=== PATIENT | female | born 1955 | race Caucasian/White ===

== ENCOUNTER 2017-06-14 14:06 | Inpatient (IN) | payer MEDICAID ==
[~2017-06-14] VITALS: Ht 157.4 cm; Wt 92.7 kg
--- NOTE | ~2017-06-14 | CON ---
[place], [place] REPORT OF CONSULTATION NAME: MISHA CARLSON UNIT #: [id number] ROOM: 424 DOCTOR: SPENCER PRATT MD BIRTHDATE: [birth year] DOS: 06/15/2017 CHIEF COMPLAINT: "I am feeling better now." HISTORY OF PRESENT ILLNESS: This is a 61-year-old white female with a lengthy history of major depression, recurrent and dysthymic disorder. The patient reports that she has been following with a psychiatrist out of the [place] area as well as a counselor in that same office. She reports having been stabilized with a combination of trazodone, Xanax, and Geodon. The Geodon has been most recently added within the last month. With this combination of medication, she reports good sleep and appetite and improvement in her overall mood stability. However, on the day of admission, she got into an argument with her daughter, which has been an ongoing long-term stressor. In the course of the argument with the daughter, the daughter did state that she hated her and no longer wanted to have anything to do with her. This triggered her to feel increasingly depressed and have some fleeting suicidal thoughts. The patient did present to the Emergency Room complaining of worsening depression and shortness of breath and was admitted to the medical floor for an exacerbation of her COPD. Since being on the medical floor, the patient has felt better and states that the medicines do work and that this is more of a situational factor that she is hopeful can be resolved by ongoing counseling in the future. She convincingly denies suicidal thoughts, homicidal thoughts or any self-injurious thoughts. MENTAL STATUS: The patient is alert and oriented. Mood does seem to be euthymic. Affect is appropriate. There is no alicia, hypomania or psychosis noted. Memory for the most part is fully intact. DIAGNOSES: Major depression, recurrent and dysthymic disorder. PLAN: At this point in time, her current medication regimen seems reasonable. She is tolerating it well without side effects and she voices that it has helped her greatly. She does have a followup appointment in the office of her psychiatrist in [place] and plans to follow with a counselor in that same office as well. There is no need for further hospitalization at this time. SPENCER PRATT MD CM:CONSTR:REPORT OF CONSULTATION 8 06/15/17930 interface
--- NOTE | ~2017-06-14 | CON ---
[place], [place] REPORT OF CONSULTATION NAME: MISHA CARLSON UNIT #: [id number] ROOM: 424 DOCTOR: JS STANTON ED.D (ASHLEY) BIRTHDATE: [birth year] DOS: 06/17/2017 HISTORY OF PRESENT ILLNESS: The patient is a 61-year-old female referred by Dr. Wilhelm for evaluation of her depression. At the present time, she is on the 4th floor at [facility]. This patient states she is , has 2 children. She is presently on SSI. MEDICAL HISTORY: Pertinent for COPD, bipolar 2 and migraine headaches. MEDICATIONS: Include Ventolin, Xanax, Neurontin, Percocet, olanzapine, omeprazole, VESIcare, trazodone, Effexor. She denies any significant substance abuse issues. PHYSICAL EXAMINATION: The patient was awake, alert and oriented in all three spheres. She adamantly denies any suicidal ideation or plan, stating she was just frustrated with her daughter, but has no plans on killing herself. She does have a psychiatrist in [place] and also sees a counselor in [place]. She is going to follow up with him when she is discharged from the hospital and states she is not suicidal or not harm herself. In addition to a counselor and a psychiatrist, she has a trimming caser. RECOMMENDATIONS: 1. In my opinion, this patient would benefit from outpatient counseling. 2. The patient should continue her psychotropic medications as prescribed. DIAGNOSIS: Bipolar 2 disorder. Thank you very much for this consult. JS STANTON ED.D CM:CONSTR:REPORT OF CONSULTATION 1010 06/17/17 1115 interface
--- NOTE | ~2017-06-14 | EKG ---
[place], [place] ELECTROCARDIOGRAM REPORT NAME: MISHA CARLSON UNIT #: [id number] ROOM: 424 DOCTOR: RENY KINCAID,EMORY BIRTHDATE: [birth year] DOS: 06/14/2017 TIME: 1514 IMPRESSION: 1. Sinus rhythm. 2. Borderline low voltage complexes. 3. Baseline artifacts. 4. Normal QT interval. EMORY OGLESBY MD CM:EKGRPT:ELECTROCARDIOGRAM REPORT 0842 [id number] EMORY OGLESBY MD
[2017-06-14 14:13] VITALS: BP 107/70
[2017-06-14 15:14] LABS: BILIRUBIN NEGATIVE (NEGATIVE); BLOOD NEGATIVE (NEGATIVE); CLARITY CLEAR (CLEAR); COLOR YELLOW (YELLOW); GLUCOSE NEGATIVE (NEGATIVE); KETONE NEGATIVE (NEGATIVE); LEUKO ESTERASE 1+ (NEGATIVE); NITRITE NEGATIVE (NEGATIVE); SPECIFIC GRAVITY <= 1.005 (1.005-1.030); UROBILINOGEN 0.2 E.U./dl (0.2-1.0)
[2017-06-14 15:25] LABS: BASO % 0.2 % (0.0-1.0); HEMATOCRIT 40.8 % (37.0-47.0); HEMOGLOBIN 13.1 g/dl (12.0-16.0); LYMPH # 2.6 10*3/uL (1.3-4.4); LYMPH % 49.6 % (27.0-41.0); MEAN CELL VOLUME 95.1 fl (81.0-99.0); MEAN CORPUSCULAR HGB 30.5 pg (27.0-31.0); MEAN CORPUSCULAR HGB CONC 32.1 g/dl (33.0-37.0); MEAN PLATELET VOLUME 9.7 fl (9.6-12.3); MONO # 0.3 10*3/uL (0.1-1.0); MONO % 6.5 % (3.0-9.0); NEUT # 2.3 10*3/uL (2.3-7.9); NEUT % 43.5 % (47.0-73.0); PLATELET COUNT AUTOMATED 212 10*3/uL (130-400); RED BLOOD COUNT 4.29 10*6/uL (4.10-5.10); RED CELL DISTRI WIDTH 13.9 % (0-14.5); WHITE BLOOD COUNT 5.2 10*3/uL (4.8-10.8)
[2017-06-14 15:26] LABS: BACTERIA TRACE; EPITHELIAL CELLS 20-25; RBC 0-2 rbc/hpf (0-2)
[2017-06-14 15:34] LABS: ACT PARTIAL THROMBO TIME 27.5 SECONDS (20.8-31.5); INTERNATIONAL NORM RATIO 0.9 (2.0-3.5)
[2017-06-14 15:41] LABS: ALBUMIN 3.9 gm/dl (3.1-4.5); ALKALINE PHOSPHATASE 70 U/L (45-117); BUN 13 mg/dl (7-24); CHLORIDE 102 mmol/L (98-107); CREATININE 1.08 mg/dL (0.55-1.02); LIPASE 54 U/L (73-393); POTASSIUM 3.9 mmol/L (3.5-5.1); SGOT/AST 21 IU/L (3-35); SGPT/ALT 27 U/L (12-78); SODIUM 139 mmol/L (136-145); TOTAL PROTEIN 7.9 gm/dL (6.4-8.2)
[2017-06-14 15:50] LABS: ETHYL ALCOHOL < 3.0 mg/dl (<3); TROPONIN I < 0.015 ng/ml (<0.045)
[2017-06-14 16:52] VITALS: BP 120/57
[2017-06-14 17:00] VITALS: BP 125/85
[2017-06-14] MEDS ORDERED: ALPRAZOLAM2 MG PO (17:43)
[2017-06-14] MEDS ORDERED: TRAZADONE HYDR100 MG PO (17:44)
[2017-06-14] MEDS ORDERED: NEURONTIN300 MG PO (17:45)
[2017-06-14] MEDS ORDERED: ZIPRASIDONE HCL80 M1 PO (17:45)
[2017-06-14] MEDS ORDERED: HYDROCODONE-AC1 EAC2 PO (17:45)
[2017-06-14] MEDS ORDERED: MONTELUKAST SOD10 MG PO (17:46)
[2017-06-14] MEDS ORDERED: ONDANSETRON HYDR4 MG PO (17:46)
[2017-06-14] MEDS ORDERED: OMEPRAZOLE D/R20 MG PO (17:46)
[2017-06-14] MEDS ORDERED: VENTOLIN 02.5 MG/3 M INH (17:48)
[2017-06-14 20:06] VITALS: BP 106/85
[2017-06-15 00:14] VITALS: BP 96/57
[2017-06-15 07:07] LABS: HEMATOCRIT 38.7 % (37.0-47.0); HEMOGLOBIN 12.6 g/dl (12.0-16.0); LYMPH # 0.6 10*3/uL (1.3-4.4); LYMPH % 11.3 % (27.0-41.0); MEAN CELL VOLUME 94.2 fl (81.0-99.0); MEAN CORPUSCULAR HGB 30.7 pg (27.0-31.0); MEAN CORPUSCULAR HGB CONC 32.6 g/dl (33.0-37.0); MEAN PLATELET VOLUME 9.8 fl (9.6-12.3); MONO % 0.6 % (3.0-9.0); NEUT # 4.5 10*3/uL (2.3-7.9); NEUT % 87.7 % (47.0-73.0); PLATELET COUNT AUTOMATED 230 10*3/uL (130-400); RED BLOOD COUNT 4.11 10*6/uL (4.10-5.10); RED CELL DISTRI WIDTH 13.9 % (0-14.5); WHITE BLOOD COUNT 5.2 10*3/uL (4.8-10.8)
[2017-06-15 07:23] LABS: ALBUMIN 3.4 gm/dl (3.1-4.5); CREATININE 1.21 mg/dL (0.55-1.02); FREE T4 0.77 ng/dl (0.76-1.46); PHOSPHOROUS 3.1 mg/dL (2.5-4.9); POTASSIUM 4.1 mmol/L (3.5-5.1); TOTAL PROTEIN 7.4 gm/dL (6.4-8.2)
[2017-06-15 07:28] LABS: THYROID STIM HORMONE (HS) 0.204 uIU/ml (0.358-4.75)
[2017-06-15 07:36] LABS: ACT PARTIAL THROMBO TIME 25.9 SECONDS (20.8-31.5); INTERNATIONAL NORM RATIO 0.9 (2.0-3.5)
[2017-06-15 08:00] VITALS: BP 98/55
[2017-06-15 08:38] LABS: VITAMIN D, 25-HYDROXY 18.2 ng/mL (30-100)
[2017-06-15 12:00] VITALS: BP 107/63
[2017-06-15 16:00] VITALS: BP 110/70
[2017-06-15 20:00] VITALS: BP 99/62
[2017-06-16] VITALS: BP 103/72
[2017-06-16] MEDS ORDERED: OLANZAPINE10 MG PO (01:08)
[2017-06-16] MEDS ORDERED: VENLAFAXINE H37.5 M5 PO (01:09)
[2017-06-16] MEDS ORDERED: VESICARE5 MG PO (01:10)
[2017-06-16 05:55] LABS: BUN 16 mg/dl (7-24); CHLORIDE 102 mmol/L (98-107); CREATININE 1.02 mg/dL (0.55-1.02); SODIUM 140 mmol/L (136-145)
[2017-06-16 05:58] LABS: HEMATOCRIT 36.5 % (37.0-47.0); HEMOGLOBIN 11.6 g/dl (12.0-16.0); MEAN CELL VOLUME 96.6 fl (81.0-99.0); MEAN CORPUSCULAR HGB 30.7 pg (27.0-31.0); MEAN CORPUSCULAR HGB CONC 31.8 g/dl (33.0-37.0); MEAN PLATELET VOLUME 10.2 fl (9.6-12.3); PLATELET COUNT AUTOMATED 240 10*3/uL (130-400); RED BLOOD COUNT 3.78 10*6/uL (4.10-5.10); RED CELL DISTRI WIDTH 14.3 % (0-14.5); WHITE BLOOD COUNT 17.3 10*3/uL (4.8-10.8)
[2017-06-16 06:35] LABS: TOTAL CELLS COUNTED 100 #CELLS
[2017-06-16 06:36] LABS: PLATELET SUFFICIENCY NORMAL (NORMAL)
[2017-06-16 08:00] VITALS: BP 97/72
[2017-06-16 12:00] VITALS: BP 113/70
[2017-06-16 16:00] VITALS: BP 101/52
[2017-06-16 20:00] VITALS: BP 92/57
[2017-06-17] VITALS: BP 112/74
[2017-06-17 05:40] LABS: BUN 19 mg/dl (7-24); CHLORIDE 105 mmol/L (98-107); CREATININE 0.84 mg/dL (0.55-1.02); POTASSIUM 4.2 mmol/L (3.5-5.1); SODIUM 140 mmol/L (136-145)
[2017-06-17 05:56] LABS: BASO % 0.1 % (0.0-1.0); HEMATOCRIT 34.2 % (37.0-47.0); HEMOGLOBIN 10.8 g/dl (12.0-16.0); LYMPH # 1.5 10*3/uL (1.3-4.4); MEAN CELL VOLUME 97.4 fl (81.0-99.0); MEAN CORPUSCULAR HGB 30.8 pg (27.0-31.0); MEAN CORPUSCULAR HGB CONC 31.6 g/dl (33.0-37.0); MEAN PLATELET VOLUME 10.3 fl (9.6-12.3); MONO # 0.7 10*3/uL (0.1-1.0); MONO % 4.3 % (3.0-9.0); NEUT # 14.5 10*3/uL (2.3-7.9); NEUT % 85.9 % (47.0-73.0); PLATELET COUNT AUTOMATED 220 10*3/uL (130-400); RED BLOOD COUNT 3.51 10*6/uL (4.10-5.10); RED CELL DISTRI WIDTH 14.8 % (0-14.5); WHITE BLOOD COUNT 16.8 10*3/uL (4.8-10.8)
[2017-06-17 08:00] VITALS: BP 128/96
[2017-06-17] MEDS ORDERED: SIMVASTATIN20 MG PO (13:47)
[2017-06-17] MEDS ORDERED: VITAMIN D-32000 UNIT PO (13:48)
[2017-06-17] MEDS ORDERED: PREDNISONE10 MG PO (13:48)
== END 2017-06-17 15:28 | disposition home or self-care (01) | DRG 682 ==
LOC: ED 14:06 → EDHOLD 16:04 → 4E 16:04
PROVIDERS: Emergency Medicine; Internal Medicine
DX: N17.0 Acute kidney failure with tubular necrosis (principal); J96.01 Acute respiratory failure with hypoxia; J44.1 Chronic obstructive pulmonary disease with (acute) exacerbation; F33.9 Major depressive disorder, recurrent, unspecified; F31.81 Bipolar II disorder; D72.810 Lymphocytopenia; E83.41 Hypermagnesemia; F41.9 Anxiety disorder, unspecified; M79.7 Fibromyalgia; G43.709 Chronic migraine without aura, not intractable, without status migrainosus; G62.9 Polyneuropathy, unspecified; M51.36 Other intervertebral disc degeneration, lumbar region; D17.9 Benign lipomatous neoplasm, unspecified; F34.1 Dysthymic disorder; E78.5 Hyperlipidemia, unspecified; E55.9 Vitamin D deficiency, unspecified; Z88.6 Allergy status to analgesic agent; Z88.8 Allergy status to other drugs, medicaments and biological substances; Z90.49 Acquired absence of other specified parts of digestive tract; Z98.51 Tubal ligation status; Z82.49 Family history of ischemic heart disease and other diseases of the circulatory system; Z83.6 Family history of other diseases of the respiratory system; Z79.899 Other long term (current) drug therapy

== ENCOUNTER 2017-07-16 09:28 | Inpatient (IN) | payer MEDICAID ==
[~2017-07-16] VITALS: Ht 157.5 cm; Wt 97.2 kg
--- NOTE | ~2017-07-16 | CON ---
[place], [place] REPORT OF CONSULTATION NAME: MISHA CARLSON UNIT #: [id number] ROOM: [place] [address] DOCTOR: SPENCER PRATT MD BIRTHDATE: [birth year] DOS: 07/17/2017 CHIEF COMPLAINT: "I fall a lot." HISTORY OF PRESENT ILLNESS: This is a 61-year-old female admitted to ICU with a history of bipolar type 1, generalized anxiety disorder and major depression. She was brought into [facility] emergency room by EMS due to multiple falls. She fell four times on the day of admission trying to ambulate from her bed to her bathroom. She was found by the [facility] staff and was brought to the ER to be evaluated. The patient states she has not eaten anything in several weeks. She reports increased depression over the fact that her brother recently and she has had significant family discord with her daughter. She, however, denies current depressive symptoms, stating that she sees psychiatrist in [place] and has seen him for the last 7-8 months. She feels that for the most part, her symptoms are under control. She does, however, endorse neuropathic pain as well as overusing her opioid medications. She does have a past history of fibromyalgia as well. MENTAL STATUS: She is alert and oriented. Mood does seem to be fairly euthymic. Affect seems appropriate. There is no alicia, hypomania or psychosis. Memory for the most part is intact. DIAGNOSIS: Bipolar type 2. PLAN: I have discontinued her Effexor and her trazodone. The high dose of trazodone could potentially be causing some urinary retention. I will write her for Cymbalta 30 mg at bedtime. This will multitask help the depression, help her anxiety, so she does not have to use the Xanax as frequently and also help the pain, so hopefully she does not have to use the opioid analgesia as much. She is not a criteria for inpatient stay and may be discharged when you feel that she is ready. SPENCER PRATT MD CM:CONSTR:REPORT OF CONSULTATION 1149 07/17/17 1223 interface
[2017-07-16 09:28] VITALS: BP 118/85
[~2017-07-16 09:28] MED LIST: ALPRAZOLAM2 MG PO; HYDROCODONE-AC1 EAC2 PO; MONTELUKAST SOD10 MG PO; NEURONTIN300 MG PO; OLANZAPINE10 MG PO; OMEPRAZOLE D/R20 MG PO; ONDANSETRON HYDR4 MG PO; PREDNISONE10 MG PO; PROVENTIL HFA6.7 GM INH; SIMVASTATIN20 MG PO; TRAZADONE HYDR100 MG PO; VENLAFAXINE H37.5 M5 PO; VESICARE5 MG PO; VITAMIN D-32000 UNIT PO; ZIPRASIDONE HCL80 M1 PO
[2017-07-16 10:04] LABS: BASO % 0.4 % (0.0-1.0); EOS % 0.2 % (1.0-4.0); HEMATOCRIT 39.1 % (37.0-47.0); HEMOGLOBIN 12.6 g/dl (12.0-16.0); LYMPH # 1.9 10*3/uL (1.3-4.4); LYMPH % 35.2 % (27.0-41.0); MEAN CELL VOLUME 96.3 fl (81.0-99.0); MEAN CORPUSCULAR HGB CONC 32.2 g/dl (33.0-37.0); MONO # 0.4 10*3/uL (0.1-1.0); MONO % 7.4 % (3.0-9.0); NEUT # 3.1 10*3/uL (2.3-7.9); NEUT % 56.6 % (47.0-73.0); PLATELET COUNT AUTOMATED 224 10*3/uL (130-400); RED BLOOD COUNT 4.06 10*6/uL (4.10-5.10); RED CELL DISTRI WIDTH 14.1 % (0-14.5); WHITE BLOOD COUNT 5.4 10*3/uL (4.8-10.8)
[2017-07-16 10:13] LABS: ACT PARTIAL THROMBO TIME 27.1 SECONDS (20.8-31.5)
[2017-07-16 10:22] LABS: ALBUMIN 3.7 gm/dl (3.1-4.5); ALKALINE PHOSPHATASE 58 U/L (45-117); BUN 10 mg/dl (7-24); CHLORIDE 105 mmol/L (98-107); CREATININE 1.06 mg/dL (0.55-1.02); POTASSIUM 3.9 mmol/L (3.5-5.1); SGOT/AST 18 IU/L (3-35); SGPT/ALT 30 U/L (12-78); SODIUM 139 mmol/L (136-145); TOTAL PROTEIN 7.6 gm/dL (6.4-8.2)
[2017-07-16 10:30] VITALS: BP 131/74
[2017-07-16 10:30] LABS: TROPONIN I < 0.015 ng/ml (<0.045)
[2017-07-16 11:35] LABS: ACETAMINOPHEN (TYLENOL) < 2.0 ug/ml (10-30); ETHYL ALCOHOL < 3.0 mg/dl (<3)
[2017-07-16 11:54] LABS: BILIRUBIN NEGATIVE (NEGATIVE); BLOOD NEGATIVE (NEGATIVE); CLARITY CLEAR (CLEAR); COLOR YELLOW (YELLOW); GLUCOSE NEGATIVE (NEGATIVE); KETONE NEGATIVE (NEGATIVE); LEUKO ESTERASE NEGATIVE (NEGATIVE); NITRITE NEGATIVE (NEGATIVE); PH 5.5 (5.0-9.0); SPECIFIC GRAVITY <= 1.005 (1.005-1.030); UROBILINOGEN 0.2 E.U./dl (0.2-1.0)
[2017-07-16 12:00] LABS: BACTERIA TRACE; WBC 0-2 wbc/hpf (0-5)
[2017-07-16 12:01] VITALS: BP 131/84
[2017-07-16 12:03] LABS: URINE AMPHETAMINES < 1000 (1000ng/ml); URINE BARBITURATES < 200 (200ng/ml); URINE BENZODIAZEPINES > 200 (200ng/ml); URINE CANNABINOIDS (THC) < 50 (50ng/ml); URINE COCAINE < 300 (300ng/ml); URINE METHADONE < 300 (300ng/ml); URINE OPIATES > 300 (300ng/ml)
[2017-07-16 12:06] LABS: URINE PHENCYCLIDINE < 25 (25ng/ml)
[2017-07-16 12:10] VITALS: BP 143/87
[2017-07-16 16:00] VITALS: BP 141/91
[2017-07-16 20:00] VITALS: BP 117/85
[2017-07-17] VITALS: BP 124/88
[2017-07-17 04:00] VITALS: BP 95/53
[2017-07-17 05:44] LABS: ACT PARTIAL THROMBO TIME 26.7 SECONDS (20.8-31.5); INTERNATIONAL NORM RATIO 0.9 (2.0-3.5)
[2017-07-17 05:46] LABS: ALBUMIN 3.3 gm/dl (3.1-4.5); ALKALINE PHOSPHATASE 50 U/L (45-117); BUN 12 mg/dl (7-24); CHLORIDE 104 mmol/L (98-107); CREATININE 0.92 mg/dL (0.55-1.02); SGOT/AST 15 IU/L (3-35); SGPT/ALT 25 U/L (12-78); SODIUM 141 mmol/L (136-145); TOTAL PROTEIN 6.5 gm/dL (6.4-8.2)
[2017-07-17 05:47] LABS: BASO % 0.2 % (0.0-1.0); EOS % 0.4 % (1.0-4.0); HEMATOCRIT 36.7 % (37.0-47.0); HEMOGLOBIN 11.7 g/dl (12.0-16.0); LYMPH % 40.7 % (27.0-41.0); MEAN CELL VOLUME 96.6 fl (81.0-99.0); MEAN CORPUSCULAR HGB 30.8 pg (27.0-31.0); MEAN CORPUSCULAR HGB CONC 31.9 g/dl (33.0-37.0); MEAN PLATELET VOLUME 9.7 fl (9.6-12.3); MONO # 0.4 10*3/uL (0.1-1.0); MONO % 7.5 % (3.0-9.0); NEUT # 2.5 10*3/uL (2.3-7.9); PLATELET COUNT AUTOMATED 230 10*3/uL (130-400); RED CELL DISTRI WIDTH 14.1 % (0-14.5)
[2017-07-17 05:52] LABS: FREE T4 0.69 ng/dl (0.76-1.46)
[2017-07-17 08:00] VITALS: BP 109/71
[2017-07-17 12:00] VITALS: BP 113/77
[2017-07-17 16:00] VITALS: BP 111/73
[2017-07-17 20:00] VITALS: BP 109/52; BP 136/70
[2017-07-18] VITALS: BP 127/62
[2017-07-18 06:20] LABS: BASO % 0.1 % (0.0-1.0); HEMATOCRIT 36.8 % (37.0-47.0); HEMOGLOBIN 11.8 g/dl (12.0-16.0); LYMPH # 2.5 10*3/uL (1.3-4.4); LYMPH % 32.5 % (27.0-41.0); MEAN CELL VOLUME 96.8 fl (81.0-99.0); MEAN CORPUSCULAR HGB 31.1 pg (27.0-31.0); MEAN CORPUSCULAR HGB CONC 32.1 g/dl (33.0-37.0); MEAN PLATELET VOLUME 9.9 fl (9.6-12.3); MONO # 0.6 10*3/uL (0.1-1.0); MONO % 7.4 % (3.0-9.0); NEUT # 4.5 10*3/uL (2.3-7.9); NEUT % 59.9 % (47.0-73.0); PLATELET COUNT AUTOMATED 227 10*3/uL (130-400); RED CELL DISTRI WIDTH 14.4 % (0-14.5); WHITE BLOOD COUNT 7.5 10*3/uL (4.8-10.8)
[2017-07-18 06:34] LABS: BUN 18 mg/dl (7-24); CHLORIDE 104 mmol/L (98-107); CREATININE 0.93 mg/dL (0.55-1.02); POTASSIUM 4.1 mmol/L (3.5-5.1); SODIUM 138 mmol/L (136-145)
[2017-07-18 08:00] VITALS: BP 104/67
[2017-07-18 08:16] VITALS: BP 100/60
[2017-07-18 12:00] VITALS: BP 111/71
[2017-07-18 16:00] VITALS: BP 103/76
[2017-07-18] MEDS ORDERED: DULOXETINE HCL30 MG PO (16:05)
== END 2017-07-18 17:49 | disposition home or self-care (01) | DRG 917 ==
LOC: ED 09:28 → EDHOLD 11:38 → ICCU 11:38 → 4E 07-17 14:18
PROVIDERS: Family Medicine; Student in an Organized Health Care Education/Training Program
DX: T50.904A Poisoning by unspecified drugs, medicaments and biological substances, undetermined, initial encounter (principal); N17.0 Acute kidney failure with tubular necrosis; G93.41 Metabolic encephalopathy; F31.81 Bipolar II disorder; G62.9 Polyneuropathy, unspecified; S09.90XA Unspecified injury of head, initial encounter; R06.09 Other forms of dyspnea; W18.30XA Fall on same level, unspecified, initial encounter; S40.012A Contusion of left shoulder, initial encounter; M79.7 Fibromyalgia; N18.3 Chronic kidney disease, stage 3 (moderate); J44.9 Chronic obstructive pulmonary disease, unspecified; G89.29 Other chronic pain; E78.5 Hyperlipidemia, unspecified; G43.909 Migraine, unspecified, not intractable, without status migrainosus; F41.1 Generalized anxiety disorder; Z90.49 Acquired absence of other specified parts of digestive tract; Z98.51 Tubal ligation status; Z80.0 Family history of malignant neoplasm of digestive organs; Z82.49 Family history of ischemic heart disease and other diseases of the circulatory system; Z83.6 Family history of other diseases of the respiratory system; Z79.899 Other long term (current) drug therapy; Z79.52 Long term (current) use of systemic steroids; Y93.89 Activity, other specified; Y92.89 Other specified places as the place of occurrence of the external cause; Y99.8 Other external cause status

== ENCOUNTER 2018-03-02 14:00 | Inpatient (IN) | payer MEDICAID ==
[~2018-03-02] VITALS: Ht 157.4 cm; Wt 88.0 kg
--- NOTE | ~2018-03-02 | EKG ---
[place], [place] ELECTROCARDIOGRAM REPORT NAME: MISHA CARLSON UNIT #: [id number] ROOM: 315 DOCTOR: SALVADOR DRAFT REPORT BIRTHDATE: [birth year] [facility] Test Date: 2018-03-02 Test Time: 14:16:24 Pat Name: MISHA CARLSON Department: Room: [facility] Gender: F Orthopaedic Nurse: : 1955 Requested By: RUPERTO MCCURDY Order Number: [id number] Reading MD: Cliff Mayer MD Measurements Intervals [place] Rate: 76 P: GA: QRS: 75 QRSD: 87 T: 67 QT: 401 QTc: 451 Interpretive Statements Normal sinus rhythm Marked baseline artifact No previous ECG available for comparison Electronically Signed On 03-03-2018 16:40:06 PST by Cliff Mayer MD CM:EKGRPT:ELECTROCARDIOGRAM REPORT 1416 1640 RUPERTO FRANCO DRAFT REPORT RUPERTO MCCURDY MD
--- NOTE | ~2018-03-02 | DS ---
[place], [place] DISCHARGE SUMMARY [id number] UNIT #: [id number] ROOM: 315 DOCTOR: SPENCER PRATT MD BIRTHDATE: [birth year] DOS: 03/06/2018 CHIEF COMPLAINT: "I don't belong in the [employer] bin I remember you from generations in [place]." HISTORY OF PRESENT ILLNESS: This is a 62-year-old white female who was admitted to the [facility] from the Emergency Room at [facility] where she was pink slipped and sent here on an involuntary basis. The patient had presented there stating that she was hearing voices talking to her and stating that they were going to build a coffin for her, so that they could kill her. She was keeping a knife by her bedside in case something came to get her. At this point, she was so fearful that she did call EMS and they did come to her assistance and brought her directly to the Emergency Room for further evaluation. In the Emergency Room, the patient was found to be grossly psychotic, very paranoid and actively hallucinating, because of the severity of her symptoms, it was felt that an inpatient stabilization was warranted and the Emergency Room physicians did send her to the psychiatric unit on an involuntary basis. The patient most recently did receive a dose of Invega Sustenna 234 mg on 02/26/2018. SUMMARY OF HOSPITAL COURSE: The patient was admitted to the unit where she was initially started on Vraylar 1.5 mg at bedtime. At first, the patient was hesitant to take the medication, but after describing to her the risks, benefits of the medication the patient did agree to take the Vraylar without any further difficulty. She tolerated the Vraylar well and the dose was increased from 1.5-3 mg a day without further incident. The patient did sleep well with the Vraylar. She did not have any sedation, somnolence, extrapyramidal symptoms or tardive dyskinesia, rather rapidly her symptoms came under control and she was voicing positive plans for the future. She was no longer reporting that she was having thoughts that someone was trying to kill her, nor did she feel that anyone was building her coffin. The patient did exhibit some cognitive decline and had some gaps in her short term memory; however, she was able to attend to her ADLs appropriately and know the medication regimen that she was prescribed. She exhibited no issues from the medications themselves, voiced positive plans for the future and was discharged then back home on March 06. MENTAL STATUS AT DISCHARGE: The patient was alert and oriented to person, place and time. There were some mild gaps regarding timeframe. Mood was strongly trending towards euthymia. Affect was much more appropriate. There was no alicia, hypomania, nor was there any gross psychotic symptoms. For the most part, memory was intact. There was some minor short term memory gaps. DIAGNOSIS UPON DISCHARGE: Schizoaffective disorder. DISPOSITION: All of her medications have been e-scribed to [facility] except her Xanax prescription which was lowered and she was given a 7-day supply of the Xanax. At the time of discharge, the patient was medically stable. There were no acute issues present. She was psychiatrically stable and ready for discharge. [place], [place] DISCHARGE SUMMARY [id number] UNIT #: [id number] ROOM: [facility] DOCTOR: SPENCER PRATT MD BIRTHDATE: [birth year] SPENCER PRATT MD CM:DISCHDENNIS 7 0 SPENCER PRATT MD 03/06/18939 interface
--- NOTE | ~2018-03-02 | WRIGHTHP ---
[place], [place] PATIENT HISTORY AND PHYSICAL EXAM NAME: [facility]LSON [id number] UNIT #: [id number] ROOM: 315 DOCTOR: SPENCER PRATT MD BIRTHDATE: [birth year] DOS: 03/03/2018 INITIAL PSYCHIATRIC EVALUATION CHIEF COMPLAINT: "I don't belong in the [employer] bin, I remember you from generations" HISTORY OF PRESENT ILLNESS: This is a 62-year-old white female who was admitted to the [facility] from the Emergency Room where she was pink slipped. The patient had presented there stating that she has been hearing voices talking to her saying that they are going to build a coffin for her. She has been keeping a knife by her bed in case someone came into her place and try to get her. At this point, she did call EMS stating that she was fearful that something bad was going to happen. They did bring her into the Emergency Room for further evaluation where she was found to be very paranoid and actively hallucinating while in the Emergency Room at [facility]. She was sent here on an involuntary basis because it was felt that she could be a potential danger to herself and others. The patient most recently was hospitalized in December of this year at [facility] for similar issues. Most recently, she has been stabilized on Invega, but reports significant tremors from the Invega Sustenna. PAST MEDICAL HISTORY: Remarkable for asthma, bipolar disorder versus schizoaffective disorder, chronic migraine headaches, COPD, degenerative disk disease, fibromyalgia, hyperlipidemia, neuropathy, ulcerative colitis, and vitamin D deficiency. SOCIAL HISTORY: She does not smoke cigarettes, use drugs or alcohol. ALLERGIES: She does lose multiple drug allergies to CODEINE, FLEXERIL and IBUPROFEN. STRENGTHS: Ambulatory, good verbal skills. WEAKNESSES: Chronic psychiatric issues and poor coping skills. MENTAL STATUS: She is alert and oriented to person, place and time. Mood does seem to be somewhat depressed with anxious overtones and significant paranoia and delusions; however, she is pleasant and cooperative and was very bright and engaging with me. She tended to minimize her symptomatology trying to read it off is nothing. She however convincingly denies suicidal thoughts, homicidal thoughts or any self-injurious thoughts. Memory for the most part is intact. DIAGNOSIS: Schizoaffective disorder. PLAN: I will go ahead and add Vraylar 1.5 mg at bedtime to augment her current psychotropic regimen hoping that this will decrease some of her delusions and stabilize her mood. We will engage her in individual and sandoval milieu activity, returning to the least restrictive environment when psychiatrically stable. [place], [place] PATIENT HISTORY AND PHYSICAL EXAM NAME: MISHA CARLSON UNIT #: [id number] ROOM: [facility] DOCTOR: SPENCER PRATT MD BIRTHDATE: [birth year] SPENCER PRATT MD CM:HISPHYS:PATIENT HISTORY AND PHYSICAL EXAMINATION 9 7 SPENCER PRATT MD 03/03/18 1139 interface
--- NOTE | ~2018-03-02 | PR ---
[place], [place] PROGRESS NOTE NAME: MISHA CARLSON UNIT #: [id number] ROOM: 315 DOCTOR: SPENCER PRATT MD BIRTHDATE: [birth year] DOS: 03/04/2018 INTERVAL NOTE CHIEF COMPLAINT: "Oh, I need to know more about this Vraylar, what we will do." SUMMARY OF THE VISIT: The patient was interviewed as she was walking in the hallway with the Physical Therapy Department. She stopped and engaged readily in conversation. I discussed with her the pros and cons of Vraylar. She did mention to me that her family does suffer from both hyperlipidemia and diabetes and was concerned what her levels are currently. Otherwise, she does seem to be trending generally towards improvement. MENTAL STATUS: She is alert and oriented. Mood does seem to be more euthymic. Affect more appropriate. There is no alicia, hypomania or gross psychosis. Short-term memory, long-term memory and intermediate are intact. PLAN: Vitamin B12 level is low normal at 336. I will treat with vitamin B12 injection 1000 mcg IM monthly. I did instruct the medical student that is working with us this month to discuss with the patient the fact that her lipids are mildly elevated as is her hemoglobin A1c. We will discuss this later with the hospitalist to see if any diabetic teaching or dietary issues could improve this. We will engage her in individual and sandoval milieu activity, returning home when stable. SPENCER PRATT MD CM:PNTRANS 3 1639 SPENCER PRATT MD 03/04/18 1637 interface
--- NOTE | ~2018-03-02 | PR ---
[place], [place] PROGRESS NOTE NAME: MISHA CARLSON UNIT #: [id number] ROOM: 315 DOCTOR: SPENCER WILHELM MD BIRTHDATE: [birth year] DOS: 03/05/2018 INTERVAL NOTE CHIEF COMPLAINT: "Oh, I'm feeling better, Dr. Wilhelm, although I had this pain behind my knee." SUMMARY OF THE VISIT: The patient was interviewed as she was resting quietly in bed. She did report she slept well. She did get up, walked down for breakfast and eat a full breakfast. She reports that she had pain in the middle of the night, but that the pain did not seem to be present now. She voiced no other complaints and seems fairly euthymic in her presentation. She convincingly denied medication side effects. MENTAL STATUS: She is alert and oriented to person, place and time. Mood does seem to be trending solidly towards euthymia. Affect is more appropriate. There is no alicia, hypomania or gross psychotic symptoms. Short, intermediate, and long-term memory are roughly intact. PLAN: I will increase her Vraylar from 1.5 to 3 mg at bedtime bringing it into a therapeutic range. We will support and monitor, engage in individual and sandoval milieu activity, returning to the least restrictive environment when psychiatrically stable. SPENCER WILHELM MD CM:PNTRANS 0958 SPENCER WILHELM MD 03/06/18 0745 interface
[~2018-03-02 14:00] MED LIST changes: +DULOXETINE HCL30 MG PO
[2018-03-02 14:11] VITALS: BP 105/66
[2018-03-02 14:25] LABS: BASO % 0.3 % (0.0-1.0); HEMATOCRIT 38.3 % (37.0-47.0); HEMOGLOBIN 12.9 g/dl (12.0-16.0); LYMPH # 1.9 10*3/uL (1.3-4.4); LYMPH % 29.1 % (27.0-41.0); MEAN CELL VOLUME 91.6 fl (81.0-99.0); MEAN CORPUSCULAR HGB 30.9 pg (27.0-31.0); MEAN CORPUSCULAR HGB CONC 33.7 g/dl (33.0-37.0); MONO # 0.5 10*3/uL (0.1-1.0); MONO % 8.4 % (3.0-9.0); PLATELET COUNT AUTOMATED 222 10*3/uL (130-400); RED BLOOD COUNT 4.18 10*6/uL (4.10-5.10); RED CELL DISTRI WIDTH 13.2 % (0-14.5); WHITE BLOOD COUNT 6.5 10*3/uL (4.8-10.8)
[2018-03-02 14:34] LABS: ACT PARTIAL THROMBO TIME 27.3 SECONDS (20.8-31.5); INTERNATIONAL NORM RATIO 0.9 (2.0-3.5)
[2018-03-02 14:43] LABS: ALBUMIN 3.4 gm/dl (3.1-4.5); ALKALINE PHOSPHATASE 57 U/L (45-117); BUN 16 mg/dl (7-24); CHLORIDE 102 mmol/L (98-107); CREATININE 1.01 mg/dL (0.55-1.02); POTASSIUM 3.9 mmol/L (3.5-5.1); SGOT/AST 16 IU/L (3-35); SGPT/ALT 18 U/L (12-78); SODIUM 135 mmol/L (136-145); TOTAL PROTEIN 7.1 gm/dL (6.4-8.2)
[2018-03-02 14:45] LABS: ETHYL ALCOHOL < 3.0 mg/dl (<3); TROPONIN I < 0.015 ng/ml (<0.045)
[2018-03-02 15:48] VITALS: BP 111/74
[2018-03-02 15:57] VITALS: BP 111/74
[2018-03-02] MEDS ORDERED: MELATONIN5 M1 PO (16:06)
[2018-03-02] MEDS ORDERED: TRAZODONE150 MG PO (16:07)
[2018-03-02] MEDS ORDERED: DEPAKOTE500 MG PO (16:08)
[2018-03-02] MEDS ORDERED: COGENTIN0.5 MG PO (16:09)
[2018-03-02] MEDS ORDERED: INVEGA SUSTENN234 MG IM (16:11)
[2018-03-02] MEDS ORDERED: SPIRIVA18 MCG PO (16:13)
[2018-03-02] MEDS ORDERED: LACTULOSE10 GM/151 PO (18:55)
[2018-03-02 20:08] VITALS: BP 115/65
[2018-03-02 22:18] LABS: BILIRUBIN NEGATIVE (NEGATIVE); BLOOD TRACE-INTACT (NEGATIVE); CLARITY CLEAR (CLEAR); COLOR YELLOW (YELLOW); GLUCOSE NEGATIVE (NEGATIVE); KETONE NEGATIVE (NEGATIVE); LEUKO ESTERASE TRACE (NEGATIVE); NITRITE NEGATIVE (NEGATIVE); PH 6.5 (5.0-9.0); SPECIFIC GRAVITY <= 1.005 (1.005-1.030); UROBILINOGEN 0.2 E.U./dl (0.2-1.0)
[2018-03-02 22:28] LABS: BACTERIA 1+
[2018-03-03 07:12] LABS: BASO % 0.3 % (0.0-1.0); HEMATOCRIT 38.4 % (37.0-47.0); HEMOGLOBIN 12.5 g/dl (12.0-16.0); LYMPH # 3.1 10*3/uL (1.3-4.4); LYMPH % 45.4 % (27.0-41.0); MEAN CELL VOLUME 92.3 fl (81.0-99.0); MEAN CORPUSCULAR HGB CONC 32.6 g/dl (33.0-37.0); MEAN PLATELET VOLUME 10.4 fl (9.6-12.3); MONO # 0.6 10*3/uL (0.1-1.0); NEUT # 3.2 10*3/uL (2.3-7.9); NEUT % 46.3 % (47.0-73.0); PLATELET COUNT AUTOMATED 225 10*3/uL (130-400); RED BLOOD COUNT 4.16 10*6/uL (4.10-5.10); RED CELL DISTRI WIDTH 13.2 % (0-14.5); WHITE BLOOD COUNT 6.9 10*3/uL (4.8-10.8)
[2018-03-03 07:40] LABS: ALBUMIN 3.3 gm/dl (3.1-4.5); ALKALINE PHOSPHATASE 51 U/L (45-117); BUN 15 mg/dl (7-24); CHLORIDE 107 mmol/L (98-107); CHOLESTEROL 205 mg/dL (<200); CREATININE 0.81 mg/dL (0.55-1.02); HDL CHOLESTEROL 61 mg/dl (40-60); LDL CHOLESTEROL 120 mg/dL (9-159); SGOT/AST 11 IU/L (3-35); SGPT/ALT 16 U/L (12-78); SODIUM 142 mmol/L (136-145); TOTAL PROTEIN 6.6 gm/dL (6.4-8.2); TRIGLYCERIDES 121 mg/dl (<150); VLDL CHOLESTEROL 24 mg/dL (6-40)
[2018-03-03 07:55] LABS: VALPROIC ACID (DEPAKENE) < 3.0 ug/ml (50-100)
[2018-03-03 09:12] VITALS: BP 123/61
[2018-03-03 09:37] LABS: VITAMIN D, 25-HYDROXY 13.9 ng/mL (30-100)
[2018-03-03 19:51] VITALS: BP 106/65
[2018-03-04 08:00] VITALS: BP 103/70
[2018-03-04 11:15] LABS: URINE AMPHETAMINES < 1000 (1000ng/ml); URINE BARBITURATES < 200 (200ng/ml); URINE BENZODIAZEPINES > 200 (200ng/ml); URINE CANNABINOIDS (THC) < 50 (50ng/ml); URINE COCAINE < 300 (300ng/ml); URINE METHADONE < 300 (300ng/ml); URINE OPIATES > 300 (300ng/ml)
[2018-03-04 11:16] LABS: URINE PHENCYCLIDINE < 25 (25ng/ml)
[2018-03-04 19:42] VITALS: BP 102/68
[2018-03-05 07:11] VITALS: BP 102/62
[2018-03-05 19:50] VITALS: BP 108/66
[2018-03-06 07:48] VITALS: BP 108/68
[2018-03-06 08:13] VITALS: BP 108/68
[2018-03-06] MEDS ORDERED: BENZTROPINE MESY1 MG PO (09:11)
[2018-03-06] MEDS ORDERED: LACTULOSE20 GM/30 M PO (09:11)
[2018-03-06] MEDS ORDERED: B121000 MCG/1 IM (09:11)
[2018-03-06] MEDS ORDERED: ALPRAZOLAM0.5 M3 PO (09:11)
[2018-03-06] MEDS ORDERED: VITAMIN D5000 UNI1 PO (09:11)
[2018-03-06] MEDS ORDERED: VRAYLAR3 MG PO (09:11)
[2018-03-06] MEDS ORDERED: DOXYCYCLINE100 M3 PO (12:10)
== END 2018-03-06 13:02 | disposition home or self-care (01) | DRG 885 ==
LOC: ED 14:00 → 3N 15:23
PROVIDERS: Emergency Medicine; Psychiatry & Neurology Psychiatry
DX: F25.9 Schizoaffective disorder, unspecified (principal); K51.90 Ulcerative colitis, unspecified, without complications; E55.9 Vitamin D deficiency, unspecified; E78.5 Hyperlipidemia, unspecified; K76.0 Fatty (change of) liver, not elsewhere classified; G43.709 Chronic migraine without aura, not intractable, without status migrainosus; F41.9 Anxiety disorder, unspecified; M79.7 Fibromyalgia; E66.01 Morbid (severe) obesity due to excess calories; J44.9 Chronic obstructive pulmonary disease, unspecified; F31.9 Bipolar disorder, unspecified; Z88.6 Allergy status to analgesic agent; Z88.8 Allergy status to other drugs, medicaments and biological substances; Z91.81 History of falling; Z98.891 History of uterine scar from previous surgery; Z90.49 Acquired absence of other specified parts of digestive tract; Z98.51 Tubal ligation status; Z82.49 Family history of ischemic heart disease and other diseases of the circulatory system; Z80.0 Family history of malignant neoplasm of digestive organs; Z82.5 Family history of asthma and other chronic lower respiratory diseases; Z68.35 Body mass index [BMI] 35.0-35.9, adult; Z79.899 Other long term (current) drug therapy